=== PATIENT | female | born 1955 | race Caucasian/White ===

== ENCOUNTER 2016-09-28 12:32 | Inpatient (IN) | payer MEDICARE ==
--- NOTE | ~2016-09-28 | DS ---
Discharge Summary [facility] [address] [place]. [address] NAME: LA RODAS : 55 STATUS : DIS IN PAT#: [id number] AGE: 61 ADM/REG DATE : 09/28/16 MR#: [id number] REPORT SERV DATE: 10/12/16 DICTATED BY: JOSE RODRIGUEZ DATE: 10/11/16 REPORT STATUS : Draft TRANSCRIBED BY: PHYLLIS DATE: 10/11/16 Data Collection from hospitalization DISCHARGE DIAGNOSES: 1. End-stage renal disease. 2. Volume overload. 3. Elevated troponin/coronary artery disease. 4. Shortness of breath. 5. Hypertension. 6. Diabetes mellitus. CONSULTATIONS: Dr. Arun Moses. PROCEDURES: Carotid blood clot study, 09/30/2016. DISCHARGE MEDICATIONS: Artificial Tears one drop twice a day, aspirin 81 mg every evening, Dialyvite one tablet every evening, PhosLo one tablet with meals, Colestid 1 g daily, Lasix 160 mg daily, Neurontin 100 mg as instructed and 300 mg at bedtime, NovoLog injection insulin as instructed, Prinivil 40 mg twice a day, Claritin 10 mg every evening, Mevacor 10 mg at bedtime, Lopressor 50 mg twice a day, Zofran 4 mg daily, Protonix 40 mg every evening, Renvela 1600 mg with meal. She was instructed not to continue Norvasc. CONDITION AT DISCHARGE: Stable. DISPOSITION: The patient was discharged home on a 2100-calorie renal/diabetic diet with activities as instructed. She will follow up with Dr. Jose Rodriguez as scheduled. She would follow up with her plaster model and mold maker as scheduled and with her athletic trainer as scheduled. HOSPITAL COURSE: This is a 61-year-old female with a past medical history of end-stage renal disease, hypertension, diffuse coronary artery disease, diabetes, remote GI bleeding who presented with increasing shortness of breath from an outside hospital. The patient recently switched from hemodialysis to peritoneal dialysis. The evening prior to admission while doing peritoneal dialysis, she noticed increasing shortness of breath when she had fluid in her abdomen. This shortness of breath was improved with drain. At the outside hospital emergency room, she was found to have an O2 saturation of 93% on room air. Her chest x-ray according to the emergency room physician revealed left pleural effusion. White blood cell count was elevated and there were 90% segs. In addition, her hemoglobin was 6.9. She denied any black stools or bright red blood per rectum. She denied any coffee-grounds emesis or abdominal pain. The patient, while on hemodialysis, was receiving Aranesp on a routine basis. While switching to peritoneal dialysis, it sounds that she may have gotten one dose within the past three to four weeks. Troponin was found to be 0.44. She does have diffuse coronary disease that is not amenable to coronary artery bypass grafting. She was admitted to the hospital at this time for further evaluation and treatment. Upon admission, hemodialysis therapy was going to be performed. Chest x-ray would be performed after dialysis. Blood cultures were obtained. Cell count and culture from peritoneal dialysis fluid was requested. The following day, the patient was seen by Dr. Arun Moses regarding abnormal troponin and shortness of breath. White blood cell count was Discharge Summary [address] [address] NAME: LA RODAS : 55 STATUS : DIS IN PAT#: [id number] AGE: 61 ADM/REG DATE : 09/28/16 MR#: [id number] REPORT SERV DATE: 10/12/16 DICTATED BY: JOSE RODRIGUEZ DATE: 10/11/16 REPORT STATUS : Draft TRANSCRIBED BY: PHYLLIS DATE: 10/11/16 13, troponin was 2.13, creatinine was 5.51. Chest x-ray revealed bibasilar atelectasis, infiltrate, probable pleural fluid, borderline cardiomegaly, pulmonary vascular prominence. Aspirin, statin, and beta blockers were continued. We were going to obtain the cath report at [place]. Echocardiogram was going to be performed for left ventricular systolic function. Volume removal was being performed with dialysis. We will recheck CPK and MB. She was in a sinus rhythm. Blood cultures were pending. A carotid blood clot study was performed. She had no palpitations, shortness of breath, or chest pain. Her lungs were clear to auscultation. She has mildly decreased left ventricular systolic function. Metoprolol was changed to Coreg. Over the next couple of days she continued to do well. Carotid ultrasound was negative. She had an ejection fraction of 40%. Blood cultures remained negative. Hemoglobin was stable. Discharge planning was performed on 10/01/2016. She had good pain control. She was alert and cooperative. She had no edema. Discharge instructions were given. Due to her improved and stable condition, she was discharged home to be followed by Home Health Care with the above-stated instructions. Information collected by: Florina Magana I submit the above information as my discharge summary. WENDY/PHYLLIS Jose Rodriguez M.D. / [id number] CC: Wagner Cannon M.D.
--- NOTE | ~2016-09-28 | HP ---
History And Physical [facility] [address] [place]. [address] NAME: LA RODAS : 55 STATUS : DIS IN PAT#: [id number] AGE: 61 ADM/REG DATE : 09/28/16 MR#: [id number] REPORT SERV DATE: 10/08/16 DICTATED BY: JOSE PIMENTEL DATE: 09/28/16 REPORT STATUS : Draft TRANSCRIBED BY: MODAnam DATE: 09/28/16 DATE OF ADMISSION: 09/28/2016 REPORT TITLE: Nephrology consult. BODY AFTER REPORT TITLE: CHIEF COMPLAINT: The patient is a 61-year-old white female with a past medical history of end-stage renal disease, hypertension, diffuse coronary artery disease, diabetes, remote GI bleeding, presented with increasing shortness of breath from an outside hospital. The patient recently switched from hemodialysis to peritoneal dialysis. Last night while doing peritoneal dialysis, she noted increasing shortness of breath when she had fluid in her abdomen. Shortness of breath would improve with drain. At the outside hospital emergency room, she was found to have an O2 saturation of 93% on room air. Her chest x-ray per the ER physician stated that there was a left pleural effusion. The patient's CBC noted that she had an elevated white blood count with 90% segs. In addition, her hemoglobin was 6.9. She denies any black stools or bright red blood per rectum. She denies any coffee-ground emesis or abdominal pain. The patient, while on hemodialysis, was receiving Aranesp on a routine basis. While switching to peritoneal dialysis, it sounds that she has gotten one dose per patient within the past three to four weeks. Baseline hemoglobin is not known at the time of this dictation. The patient's troponin was noted to be 0.44. She is noted to have diffuse coronary disease that is not amenable to CABG. She is followed by Dr. Peres at [facility]. PAST MEDICAL HISTORY/PAST SURGICAL HISTORY: 1. End-stage renal disease. 2. Hypertension. 3. Diffuse coronary disease, noted not to be a candidate for CABG based on PCI, based on notes from 2011, followed by Dr. Peres. 4. Diabetes with toe amputations. 5. Remote GI bleeding. 6. Paraesophageal hernia repair. SOCIAL HISTORY: . Has daughter. Good family support. FAMILY MEDICAL HISTORY: No known kidney disease. ALLERGIES: INCLUDE DILTIAZEM, HYDROCODONE, AMLODIPINE, CARVEDILOL. HOME MEDICATIONS: Include amlodipine 10 mg p.o. b.i.d., lisinopril 40 mg p.o. b.i.d., Claritin 10 mg daily, lovastatin 40 mg daily, metoprolol 50 mg p.o. b.i.d., Zofran 4 mg p.r.n., Protonix 40 mg as needed, Renvela 800 mg t.i.d. with meals. In addition, she is on aspirin 81 mg daily, multivitamin, PhosLo 1 tablet t.i.d. with meals, colestipol, Lasix 80 mg p.o. b.i.d., Neurontin 100 mg post dialysis and 300 mg in the evening. History And Physical [address] [place]. [address] NAME: LA RODAS : 55 STATUS : DIS IN PAT#: [id number] AGE: 61 ADM/REG DATE : 09/28/16 MR#: [id number] REPORT SERV DATE: 10/08/16 DICTATED BY: JOSE PIMENTEL DATE: 09/28/16 REPORT STATUS : Draft TRANSCRIBED BY: PHYLLIS DATE: 09/28/16 REVIEW OF SYSTEMS: Complete review of systems done, negative otherwise as stated in the HPI. PHYSICAL EXAMINATION: VITAL SIGNS: Are currently pending, but in the emergency department, she was at the outside hospital, she was noted to be afebrile. She had systolic blood pressures in the 130s, heart rates in the 60s to 80s. GENERAL: She is no apparent distress, obese. NEURO: She is alert and oriented x3. Appropriate mood and affect. Moves all four extremities. SKIN: She is noted to have a clean dressing on her left foot. HEENT: Normocephalic. NECK: No JVP. Trachea is midline. Moist mucous membranes. CARDIOVASCULAR: Regular rate and rhythm. No gallops, rubs, or murmurs. ABDOMEN: Soft, nontender, nondistended. Positive bowel sounds. EXTREMITIES: No peripheral edema noted. Access left upper AV graft clean and intact with good thrill and bruit. PD catheter, clean and intact. Chest x-ray is pending. LABS: Pending. However, noted to have a hemoglobin of 6.9 at outside hospital, potassium is 5.2. Troponin 0.44. PLAN: 1. Hemodialysis. 2. Labs as mentioned in orders. 3. Chest x-ray after dialysis. Echocardiogram if not completed in the last three to six months at [facility]. Medical records have been requested. 4. Blood cultures. 5. Cell count and culture from PD fluid. SGG/MODL Jose Pimentel M.D. / [id number] CC: Jose Pimentel M.D.
--- NOTE | ~2016-09-28 | CN ---
Consultation Report [facility] [address] [place]. [address] NAME: LA HERNÁNDEZ : 55 STATUS : ADM IN PAT#: [id number] AGE: 61 ADM/REG DATE : 09/28/16 MR#: [id number] REPORT SERV DATE: 09/29/16 DICTATED BY: PAULIE WILKINS DATE: 09/29/16 REPORT STATUS : Draft TRANSCRIBED BY: MODL DATE: 09/29/16 CARDIOLOGY CONSULTATION NOTE DATE OF CONSULTATION: 09/29/2016 PRIMARY JBOSS ARCHITECT: Dr. Peres at [place]. CHIEF COMPLAINT: Shortness of breath. REASON FOR CONSULTATION: Abnormal troponin. SOURCE: The patient chart. HISTORY OF PRESENT ILLNESS: Ms Hernández is a very pleasant 61-year-old white woman with end-stage renal disease, on hemodialysis, converting to peritoneal dialysis. Yesterday, she became short of breath and went to the [facility] ER. Dr. Rodriguez had her transferred here to [facility] where she underwent dialysis yesterday and has felt somewhat better. She had a left neck ache and shoulder ache, belching made it better. She has not had any chest pain. No palpitations or syncope. She has had some swelling. REVIEW OF SYSTEMS: All other systems are negative. ALLERGIES: AT HOME INCLUDED DILTIAZEM, HYDROCODONE, AND CARVEDILOL. MEDICATIONS: At home included amlodipine, aspirin, B complex with C and folic acid, calcium, colestipol, furosemide, gabapentin, insulin, lisinopril, loratadine, lovastatin, metoprolol, ondansetron, Protonix, Sevelamer. CARDIAC RISK FACTORS: Diabetes, hypertension, cholesterol. FAMILY HISTORY: Denies tobacco. SOCIAL HISTORY: The patient lives in [facility], , one daughter, alive and well. She is disabled. FAMILY HISTORY: Brother has had diabetes and coronary artery bypass grafting in his 40s. PAST MEDICAL HISTORY: Significant for abnormal nuclear stress test. She underwent cardiac catheterization at [place] by Dr. Peres. She was found to have coronary artery disease, reportedly diffuse, but was not a candidate for angioplasty and stenting or coronary artery bypass grafting and she was treated medically status post hernia repair; end-stage renal disease, on hemodialysis over the past five years. She is changing to peritoneal dialysis, status post herniorrhaphy, status post gallbladder surgery. Consultation Report [facility] [address] [place]. [address] NAME: LA HERNÁNDEZ : 55 STATUS : ADM IN PAT#: [id number] AGE: 61 ADM/REG DATE : 09/28/16 MR#: [id number] REPORT SERV DATE: 09/29/16 DICTATED BY: PAULIE WILKINS DATE: 09/29/16 REPORT STATUS : Draft TRANSCRIBED BY: PHYLLIS DATE: 09/29/16 PHYSICAL EXAMINATION: GENERAL: Well-developed, well-nourished elderly white woman, in no acute distress. VITAL SIGNS: The blood pressure is 143/64, pulse 76, temperature 97.4, weight is 82.3 kg, height is 5 feet 6 inches. HEENT: Sclerae anicteric. Lips without cyanosis. Carotids are 2+ and symmetrical. No bruits. No JVD. No thyromegaly. The left eye is sclerotic and nearly closed. LUNGS: Rales both bases. No use of accessory muscles. HEART: Regular rate and rhythm with 2/6 systolic murmur. No heaves or thrills. ABDOMEN: Positive bowel sounds. Soft, nontender, obese. EXTREMITIES: Pulses 2+ and symmetrical. 2+ edema. No cyanosis or clubbing. BACK: No CVA tenderness. MUSCULOSKELETAL: Good tone. NEURO: Alert and oriented x3. STUDIES: EKG reveals sinus rhythm, nonspecific ST changes. Late R-wave transition. Nonspecific ST changes. LABORATORY EXAMINATION: Included the white count of 13.0, hemoglobin 8.9, hematocrit 26.6, platelets 205,000. The sodium 143, potassium 4.6, chloride of 106, CO2 of 26, glucose 131, BUN 32, creatinine 5.51. Troponin of 2.13. Next troponin was 2.51. The CPK was 89 and the MB was 2.3. The chest x-ray reveals bibasilar atelectasis, infiltrate, probable pleural fluid, borderline cardiomegaly, pulmonary vascular prominence. The BNP level of 3080. The echocardiogram reveals LVEF of 0.40, mild LVH, dilated left atrium, large pleural effusion, mild MR, no AI, fully mobile leaflets, mild sclerosis and calcification without aortic stenosis. IMPRESSION: 1. Abnormal troponin with normal CPK and MB. 2. Congestive heart failure. Acute with elevated BNP level. 3. Left ventricular ejection fraction of 40% by echo. 4. History of diffuse coronary artery disease at catheterization at [place]. 5. End-stage renal disease, on hemodialysis. Converting to peritoneal dialysis. 6. Volume overload. 7. Anemia. 8. Cardiac risk factors including diabetes, hypertension, hyperlipidemia, and family history. RECOMMENDATIONS: 1. Aspirin, statin, beta blockers. 2. Obtain cath report from Dr. Peres at [place]. 3. Check echocardiogram for left ventricular systolic function already done. Consultation Report [address] [address] NAME: LA HERNÁNDEZ : 55 STATUS : ADM IN [facility]#: [id number] AGE: 61 ADM/REG DATE : 09/28/16 MR#: [id number] REPORT SERV DATE: 09/29/16 DICTATED BY: PAULIE WILKINS DATE: 09/29/16 REPORT STATUS : Draft TRANSCRIBED BY: AMANDAL DATE: 09/29/16 4. Volume removal with dialysis. 5. Check CPK and MB. BN/MODL Paulie Wilkins M.D. / [id number] CC: Wagner Denney M.D.
[~2016-09-28 12:32] MED LIST: DIALYVITE800 MG PO; LISINOPRIL40 MG PO; LOP50 PO; MEVACOR40 MG PO; NEUR100 PO; NEUR300 PO; NOVOPEN SC; SEVE800T PO; [UNRECOGNIZED DRUG - OTHER] PO
[2016-09-28] MEDS ORDERED: NORV10 PO ×2 (13:15→13:53)
[2016-09-28] MEDS ORDERED: COLESTID1 GM PO ×2 (13:16→13:54)
[2016-09-28] MEDS ORDERED: ZOFRAN4 PO ×2 (13:17→13:55)
[2016-09-28] MEDS ORDERED: PHOSLO PO ×2 (13:18→13:56)
[2016-09-28] MEDS ORDERED: L80 PO ×2 (13:18→13:55)
[2016-09-28] MEDS ORDERED: PROTONIX PO ×2 (13:19→13:57)
[2016-09-28] MEDS ORDERED: RENVELA800 MG PO ×2 (13:19→13:56)
[2016-09-28] MEDS ORDERED: CLARIT10 PO ×2 (13:20→13:57)
[2016-09-28] MEDS ORDERED: ASAB PO ×2 (13:21→13:57)
[2016-09-28] MEDS ORDERED: MEVACOR10 MG PO (13:53)
[2016-09-28] MEDS ORDERED: LOP50 PO (13:54)
[2016-09-28] MEDS ORDERED: LISINOPRIL40 MG PO (13:54)
[2016-09-28] MEDS ORDERED: DIALYVITE PO (13:55)
[2016-09-28] MEDS ORDERED: NOVOLOG SC (13:57)
[2016-09-28] MEDS ORDERED: NEUR300 PO (13:59)
[2016-09-28] MEDS ORDERED: TEARS PURE OPH (14:00)
[2016-09-28] MEDS ORDERED: NEUR100 PO ×2 (14:00→14:14)
[2016-09-28 14:27] LABS: BASOPHILS 0.2 %; BASOPHILS ABSOLUTE 0.03 10/3/uL (0.0-0.16); EOSINOPHILS 0.3 %; EOSINOPHILS ABSOLUTE 0.04 10/3/uL (0.0-0.53); HEMATOCRIT 24.2 % (36.0-48.0); IMMATURE GRANULOCYTES 0.4 %; IMMATURE GRANULOCYTES ABSOLUTE 0.06 10/3/uL (0.0-0.11); LYMPHOCYTES 6.6 %; LYMPHOCYTES ABSOLUTE 0.88 10/3/uL (0.67-4.30); MANUAL DIFF NO %; MEAN CORPUS HGB CONC 33.1 g/dL (32.0-36.0); MEAN CORPUSCULAR HEMOGLOB 34.5 pg (26.0-34.0); MEAN CORPUSCULAR VOLUME 104.3 fL (80-100); MEAN PLATELET VOLUME 8.9 fL (9.2-13.0); MONOCYTES 3.1 %; MONOCYTES ABSOLUTE 0.41 10/3/uL (0.21-1.20); NEUTROPHILS 89.4 %; NEUTROPHILS ABSOLUTE 11.94 10/3/uL (2.02-8.40); PLATELET COUNT 237 10/3/uL (150-400); RBC DISTRIBUTION WIDTH 15.5 % (12.0-16.0); RED CELL COUNT 2.32 10/6/uL (4.0-5.6); WHITE BLOOD CELLS 13.4 10/3/uL (4.5-10.5)
[2016-09-28 14:47] LABS: ALBUMIN 2.5 G/DL (3.5-5.0); BUN (BLOOD UREA NITROGEN) 70 MG/DL (6-23); CHLORIDE, SERUM 98 MMOL/L (96-112); CO2 (CARBON DIOXIDE) 26 MMOL/L (24-34); CREATININE 9.86 MG/DL (0.55-1.02); GFR AFRICAN AMERICAN 4 ML/MIN (>=60); GFR NON AFRICAN AMERICAN 4 ML/MIN (>=60); GLUCOSE, SERUM 156 MG/DL (60-99); PHOSPHORUS, SERUM 5.7 MG/DL (2.5-4.5); POTASSIUM, SERUM 5.1 MMOL/L (3.5-5.3); SODIUM, SERUM 138 MMOL/L (135-148)
[2016-09-28 14:48] LABS: CALCIUM, SERUM 8.7 MG/DL (8.5-10.4)
[2016-09-28 15:16] LABS: CPK 37 U/L (0-200); CPK (IF ELEVATED MB BANDS) 37 U/L (0-200)
[2016-09-28 15:17] LABS: CK-MB 1.4 NG/ML; TROPONIN I 0.49 NG/ML (<0.05)
[2016-09-29 02:06] LABS: BF TOTAL CELL CT (NOT ORD 48 /MM3; BODY FLUID RBC (NOT ORD) < 10 /MM3
[2016-09-29 02:20] LABS: BD FL LYMPH (NOT ORD) 13 %; BD FL SOURCE (NOT ORD) PERITONEAL; BF BASO (NOT OF) 0 %; BF LARGE MONONUCLEAR 79 %; BODY FLUID EOS (NOT ORD) 1 %; BODY FLUID SEG (NOT ORD) 7 %
[2016-09-29 05:18] LABS: HEMATOCRIT 26.6 % (36.0-48.0); HEMOGLOBIN 8.9 g/dL (12.0-16.0); MEAN CORPUS HGB CONC 33.5 g/dL (32.0-36.0); MEAN PLATELET VOLUME 8.9 fL (9.2-13.0); PLATELET COUNT 205 10/3/uL (150-400)
[2016-09-29 05:19] LABS: MANUAL DIFF YES %; MEAN CORPUSCULAR VOLUME 98.5 fL (80-100); RBC DISTRIBUTION WIDTH 19.9 % (12.0-16.0)
[2016-09-29 05:23] LABS: ALBUMIN 2.3 G/DL (3.5-5.0); CALCIUM, SERUM 8.8 MG/DL (8.5-10.4); CHLORIDE, SERUM 106 MMOL/L (96-112); CO2 (CARBON DIOXIDE) 26 MMOL/L (24-34); GLUCOSE, SERUM 131 MG/DL (60-99); POTASSIUM, SERUM 4.6 MMOL/L (3.5-5.3); SODIUM, SERUM 143 MMOL/L (135-148)
[2016-09-29 05:25] LABS: BUN (BLOOD UREA NITROGEN) 32 MG/DL (6-23); CREATININE 5.51 MG/DL (0.55-1.02); GFR AFRICAN AMERICAN 9 ML/MIN (>=60); GFR NON AFRICAN AMERICAN 8 ML/MIN (>=60); PHOSPHORUS, SERUM 4.3 MG/DL (2.5-4.5)
[2016-09-29 05:54] LABS: BAND NEUTROPHILS 2 %; LYMPHOCYTES 13 %; LYMPHOCYTES ABSOLUTE (CALC) 1.69 10/3/uL (0.67-4.30); NEUTROPHILS ABSOLUTE (CALC) 11.31 10/3/uL (2.02-8.40); SEGMENTED NEUTROPHIL (0) 85 %; TOTAL NUCLEATED CELLS 100
[2016-09-29 05:55] LABS: ANISOCYTOSIS 1+ (5-10/OIF) (0-5/OIF); PLATELET ESTIMATE ADQ (ADEQUATE)
[2016-09-29 12:42] LABS: TROPONIN I 2.13 NG/ML (<0.05)
[2016-09-29 12:48] LABS: TROPONIN I 2.55 NG/ML (<0.05)
[2016-09-29 17:03] LABS: CK-MB 2.3 NG/ML; CPK 89 U/L (0-200)
[2016-09-29 17:45] LABS: CK-MB 2.5 NG/ML
[2016-09-29 17:46] LABS: CPK 88 U/L (0-200)
[2016-09-30 05:57] LABS: BASOPHILS 0.3 %; BASOPHILS ABSOLUTE 0.03 10/3/uL (0.0-0.16); EOSINOPHILS 1.5 %; EOSINOPHILS ABSOLUTE 0.14 10/3/uL (0.0-0.53); HEMATOCRIT 27.9 % (36.0-48.0); HEMOGLOBIN 9.1 g/dL (12.0-16.0); IMMATURE GRANULOCYTES 0.5 %; IMMATURE GRANULOCYTES ABSOLUTE 0.05 10/3/uL (0.0-0.11); LYMPHOCYTES 9.8 %; LYMPHOCYTES ABSOLUTE 0.92 10/3/uL (0.67-4.30); MEAN CORPUS HGB CONC 32.6 g/dL (32.0-36.0); MEAN CORPUSCULAR HEMOGLOB 32.6 pg (26.0-34.0); MEAN PLATELET VOLUME 9.2 fL (9.2-13.0); MONOCYTES 3.7 %; MONOCYTES ABSOLUTE 0.35 10/3/uL (0.21-1.20); NEUTROPHILS 84.2 %; NEUTROPHILS ABSOLUTE 7.89 10/3/uL (2.02-8.40); PLATELET COUNT 229 10/3/uL (150-400); RBC DISTRIBUTION WIDTH 18.4 % (12.0-16.0); RED CELL COUNT 2.79 10/6/uL (4.0-5.6); WHITE BLOOD CELLS 9.4 10/3/uL (4.5-10.5)
[2016-09-30 05:59] LABS: MANUAL DIFF NO %
[2016-09-30 06:06] LABS: ALBUMIN 2.3 G/DL (3.5-5.0); CALCIUM, SERUM 9.3 MG/DL (8.5-10.4); CHLORIDE, SERUM 104 MMOL/L (96-112); CO2 (CARBON DIOXIDE) 25 MMOL/L (24-34); PHOSPHORUS, SERUM 4.5 MG/DL (2.5-4.5); POTASSIUM, SERUM 4.1 MMOL/L (3.5-5.3); SODIUM, SERUM 142 MMOL/L (135-148)
[2016-09-30 06:11] LABS: BUN (BLOOD UREA NITROGEN) 40 MG/DL (6-23); CREATININE 6.54 MG/DL (0.55-1.02); GFR AFRICAN AMERICAN 7 ML/MIN (>=60); GFR NON AFRICAN AMERICAN 6 ML/MIN (>=60); GLUCOSE, SERUM 245 MG/DL (60-99)
[2016-10-01 05:36] LABS: ALBUMIN 2.3 G/DL (3.5-5.0); CHLORIDE, SERUM 98 MMOL/L (96-112); CO2 (CARBON DIOXIDE) 28 MMOL/L (24-34); GFR AFRICAN AMERICAN 6 ML/MIN (>=60); GFR NON AFRICAN AMERICAN 5 ML/MIN (>=60); GLUCOSE, SERUM 243 MG/DL (60-99); PHOSPHORUS, SERUM 4.2 MG/DL (2.5-4.5); POTASSIUM, SERUM 4.1 MMOL/L (3.5-5.3); SODIUM, SERUM 136 MMOL/L (135-148)
[2016-10-01 05:47] LABS: BASOPHILS 0.3 %; BASOPHILS ABSOLUTE 0.02 10/3/uL (0.0-0.16); EOSINOPHILS 2.4 %; EOSINOPHILS ABSOLUTE 0.19 10/3/uL (0.0-0.53); HEMATOCRIT 29.1 % (36.0-48.0); HEMOGLOBIN 9.5 g/dL (12.0-16.0); IMMATURE GRANULOCYTES 0.3 %; IMMATURE GRANULOCYTES ABSOLUTE 0.02 10/3/uL (0.0-0.11); LYMPHOCYTES 11.9 %; LYMPHOCYTES ABSOLUTE 0.95 10/3/uL (0.67-4.30); MEAN CORPUS HGB CONC 32.6 g/dL (32.0-36.0); MEAN CORPUSCULAR HEMOGLOB 32.1 pg (26.0-34.0); MEAN CORPUSCULAR VOLUME 98.3 fL (80-100); MONOCYTES 4.3 %; MONOCYTES ABSOLUTE 0.34 10/3/uL (0.21-1.20); NEUTROPHILS 80.8 %; NEUTROPHILS ABSOLUTE 6.43 10/3/uL (2.02-8.40); PLATELET COUNT 248 10/3/uL (150-400); RBC DISTRIBUTION WIDTH 17.3 % (12.0-16.0); RED CELL COUNT 2.96 10/6/uL (4.0-5.6)
[2016-10-01 05:50] LABS: BUN (BLOOD UREA NITROGEN) 50 MG/DL (6-23); CREATININE 7.39 MG/DL (0.55-1.02)
[2016-10-01 05:51] LABS: MANUAL DIFF NO %
[2016-11-13] MEDS ORDERED: CLARIT10 PO ×2 (06:04→10:25)
[2016-11-13] MEDS ORDERED: NORV10 PO ×2 (06:04→10:27)
[2016-11-13] MEDS ORDERED: COLESTIPOL1 GM PO ×2 (06:05→10:31)
[2016-11-13] MEDS ORDERED: DIALYVITE PO (06:06)
[2016-11-13] MEDS ORDERED: L80 PO ×2 (06:07→10:22)
[2016-11-13] MEDS ORDERED: *UNABLE3 (06:14)
[2016-11-13] MEDS ORDERED: LEVEMFLXPN SC (10:23)
[2016-11-13] MEDS ORDERED: MEVACOR10 MG PO (10:23)
[2016-11-13] MEDS ORDERED: ZOFRAN4 PO (10:23)
[2016-11-13] MEDS ORDERED: LISINOPRIL40 MG PO (10:25)
[2016-11-13] MEDS ORDERED: PHOSLO PO (10:26)
[2016-11-13] MEDS ORDERED: SENSIPAR90 MG PO (10:27)
[2016-11-13] MEDS ORDERED: RENVELA800 MG PO (10:27)
[2016-11-13] MEDS ORDERED: LOP50 PO (10:28)
[2016-11-13] MEDS ORDERED: NOVOPEN SC (10:29)
[2016-11-15] MEDS ORDERED: KEPPRA500 PO (14:21)
[2016-11-15] MEDS ORDERED: NEUR300 PO (14:25)
[2016-11-15] MEDS ORDERED: TUMSROLL PO (14:31)
[2017-01-24] MEDS ORDERED: ZOFRAN4 PO (23:40)
[2017-01-24] MEDS ORDERED: COLESTID1 GM PO (23:40)
[2017-01-24] MEDS ORDERED: APRES10B PO (23:40)
[2017-01-24] MEDS ORDERED: L80 PO (23:40)
[2017-01-24] MEDS ORDERED: KEPPRA500 PO (23:41)
[2017-01-24] MEDS ORDERED: LISINOPRIL40 MG PO (23:41)
[2017-01-24] MEDS ORDERED: MEVACOR10 MG PO (23:42)
[2017-01-24] MEDS ORDERED: MAGNEBIND PO (23:42)
[2017-01-24] MEDS ORDERED: NEUR300 PO (23:43)
[2017-01-24] MEDS ORDERED: PROTONIX PO (23:43)
[2017-01-24] MEDS ORDERED: NOVOPEN (23:44)
[2017-01-24] MEDS ORDERED: LEVEMFLXPN SC (23:44)
[2017-01-24] MEDS ORDERED: RENVELA800 MG PO (23:45)
[2017-01-24] MEDS ORDERED: DIALYVITE PO (23:46)
[2017-01-24] MEDS ORDERED: CLARIT10 PO (23:46)
[2017-01-24] MEDS ORDERED: GENTEAL 15 ML O15 ML OPH (23:47)
[2017-01-24] MEDS ORDERED: WHITE PETROLATUM OPH (23:48)
[2017-01-24] MEDS ORDERED: MINERAL OIL OPH (23:48)
== END 2016-10-01 15:48 | disposition home health service (06) | DRG 291 ==
LOC: 7NO 12:32
PROVIDERS: Internal Medicine Nephrology; Nurse Practitioner Family; Registered Nurse
PROC: 3E1M39Z Irrigation of Peritoneal Cavity using Dialysate, Percutaneous Approach (ICD-10-PCS; principal; 2016-09-28)
PROC: 30233N1 Transfusion of Nonautologous Red Blood Cells into Peripheral Vein, Percutaneous Approach (ICD-10-PCS; 2016-09-28)
DX: I13.2 Hypertensive heart and chronic kidney disease with heart failure and with stage 5 chronic kidney disease, or end stage renal disease (principal); I50.21 Acute systolic (congestive) heart failure; N18.6 End stage renal disease; E11.22 Type 2 diabetes mellitus with diabetic chronic kidney disease; Z99.2 Dependence on renal dialysis; I27.2 Other secondary pulmonary hypertension; I25.10 Atherosclerotic heart disease of native coronary artery without angina pectoris; Z95.1 Presence of aortocoronary bypass graft; Z79.82 Long term (current) use of aspirin; Z89.429 Acquired absence of other toe(s), unspecified side; Z88.5 Allergy status to narcotic agent; Z88.8 Allergy status to other drugs, medicaments and biological substances; Z82.49 Family history of ischemic heart disease and other diseases of the circulatory system
CPT/HCPCS: 36415; 71010; 71020; 80069; 82550; 82553; 82962; 83735; 83880; 84484; 85025; 86850; 86900; 86901; 86920; 87040; 87070; 87205; 89051; 93005; 93306; 93880; A9270-GY; G0257; J0885; J2405; P9016